=== PATIENT | male | born 1950 | race African-American/Black ===

== ENCOUNTER 2019-04-22 07:30 | Day surgery (SDC) | payer MEDICARE, OTHER ==
[~2019-04-22 07:30] MED LIST: Acetaminophen TAB* 325 MG PO PRN; Buffered Lidocaine 1% SYRIN* 1 ML/SYRINGE INTRADERM ONE
[2019-04-22] MEDS ORDERED: fentaNYL* 50 MCG/ML 2 ML VIAL (100 MCG VIAL) ONE (08:34)
[2019-04-22] MEDS ORDERED: Midazolam* 1 MG/ML 5 ML VIAL (5 MG) ONE (08:34)
[2019-04-22 09:38] VITALS: BP 124/95
[2019-04-22] MEDS ORDERED: Neomycin/Polymy/Dex OPHTH.OIN* 3.5 GM ONE (09:42)
[2019-04-22] MEDS ORDERED: Lidocaine 1% MPF ** 5 ML VIAL ONE (09:42)
[2019-04-22] MEDS ORDERED: Tropicamide 1% OPTH.SOL* BTL ONE (09:42)
[2019-04-22] MEDS ORDERED: Tetracaine 0.5% OPTH.SOL 4 ML* 1 DROP BTL ONE (09:42)
[2019-04-22] MEDS ORDERED: Phenylephrine OPHTH SOL 2.5%* 2 ML ONE (09:42)
[2019-04-22] MEDS ORDERED: Ketorolac 0.5% OPHTH (NF) 0.5 % 5 ML BTL ONE (09:42)
[2019-04-22] MEDS ORDERED: Cyclopentolate 1% OPTH.SOL* 2 ML BTL ONE (09:42)
[2019-04-22] MEDS ORDERED: Phenylephr/Ketorolac 1%/0.3% OPH DROP BTL ONE ×2 (11:05→13:38)
--- NOTE | 2019-04-22 14:41 | OP ---
DATE OF OPERATION: 04/22/19 [facility] DATE OF : 50 SURGEON: Elvin Bautista MD [employer] COUNSELOR: None. ANESTHESIA: Topical with intravenous sedation. PRE-OP DIAGNOSIS: Cataract with astigmatism, left eye. POST-OP DIAGNOSIS: Cataract with astigmatism, left eye. OPERATIVE PROCEDURE: Phacoemulsification and cataract extraction with posterior chamber intraocular toric lens implant, left eye. COMPLICATIONS: None. BLOOD LOSS: None. DESCRIPTION OF PROCEDURE: The patient was brought to the operating room and was given intravenous sedation. A drop of tetracaine was placed in his left eye. The patient was prepped and draped in the usual sterile fashion for ophthalmic surgery and attention was directed to the left eye where a speculum was placed. A paracentesis was created at the 5 o'clock position and 0.1 cc of 1% preservative- free lidocaine was injected into the anterior chamber followed by DisCoVisc. The eye was digitally stabilized while a 2.75 mm keratome was used to create a triplanar clear corneal incision at the 3 o'clock position. It was noted that the pupil did not dilate well and the viscoelastic only helped to open it a bit further, so Omidria was added to the irrigating solution. A continuous curvilinear capsulorrhexis was created with a cystotome and Utrata forceps measuring approximately 5 mm in diameter. BSS on a cannula was used to hydrodissect the lens from the capsule. Phacoemulsification was performed in a fysque-khw-suvteah technique to create 4 fragments which were removed. Residual cortical material was removed with irrigation and aspiration. The capsular bag was polished. Provisc was used to inflate the capsular bag. The surface of the eye was lubricated after the intraocular pressure was checked. The ORA device was employed. An SN6AT4 17.5 diopter lens was chosen. A reticle on the ORA helped guide lens access placement. The lens was folded and inserted into the capsular bag. It was dialed to the appropriate axis of approximately 86 degrees. The lens was stabilized in this position using a Sinskey hook while irrigation and aspiration were performed to remove viscoelastic from the eye. BSS on a cannula was used to hydrate the cornea and seal the wound. At the end of the case, the pupil was round. The lens was centered, stable and axially aligned. The eye pressure appeared normal and the wound was watertight. The speculum was removed. Topical Maxitrol ointment was placed on the surface of the eye. The eye was closed, patched, and shielded and the patient was sent to the recovery room in stable condition with postoperative instructions and followup appointment given. [id number]/CPS #: [id number] MTDD
== END 2019-04-22 09:33 | disposition home or self-care (01) ==
LOC: OREAST 07:30
PROVIDERS: ATTEND Ophthalmology
DX: H25.042 Posterior subcapsular polar age-related cataract, left eye (principal); H52.202 Unspecified astigmatism, left eye
CPT/HCPCS: A9270-GY; J1097; J2250; J3010; V2787

== ENCOUNTER 2019-04-29 07:23 | Day surgery (SDC) | payer MEDICARE, OTHER ==
[2019-04-29] MEDS ORDERED: Lidocaine 1% MPF ** 5 ML VIAL ONE (07:30)
[2019-04-29] MEDS ORDERED: Tetracaine 0.5% OPTH.SOL 4 ML* 1 DROP BTL ONE (07:30)
[2019-04-29] MEDS ORDERED: Ketorolac 0.5% OPHTH (NF) 0.5 % 5 ML BTL ONE (07:30)
[2019-04-29] MEDS ORDERED: Tropicamide 1% OPTH.SOL* BTL ONE (07:30)
[2019-04-29] MEDS ORDERED: Neomycin/Polymy/Dex OPHTH.OIN* 3.5 GM ONE (07:30)
[2019-04-29] MEDS ORDERED: Phenylephrine OPHTH SOL 2.5%* 2 ML ONE (07:30)
[2019-04-29] MEDS ORDERED: Cyclopentolate 1% OPTH.SOL* 2 ML BTL ONE (07:30)
[2019-04-29] MEDS ORDERED: fentaNYL* 50 MCG/ML 2 ML VIAL (100 MCG VIAL) ONE (08:16)
[2019-04-29] MEDS ORDERED: Midazolam* 1 MG/ML 2 ML VIAL (2 MG) ONE ×2 (08:16→11:37)
[2019-04-29 09:35] VITALS: BP 116/84
--- NOTE | 2019-04-29 22:20 | OP ---
DATE OF OPERATION: 04/29/19 - [facility] DATE OF : 50 SURGEON: Elvin Bautista MD [employer]ER[employer] ATTORNEY: None. ANESTHESIA: Topical with intravenous sedation. PRE-OP DIAGNOSIS: Cataract with astigmatism, right eye. POST-OP DIAGNOSIS: Cataract with astigmatism, right eye OPERATIVE PROCEDURE: Phacoemulsification cataract extraction with posterior chamber toric intraocular lens implant, right eye. COMPLICATIONS: None. ESTIMATED BLOOD LOSS: None. DESCRIPTION OF PROCEDURE: The patient was brought to the operating room and received intravenous sedation. A drop of Tetracaine was placed in his right eye. The patient was prepped and draped in the usual sterile fashion for ophthalmic surgery and attention was directed to the right eye where a speculum was placed. A paracentesis was created at the 11 o'clock position and 0.1 cc of 1% preservative free lidocaine was injected into the anterior chamber followed by DisCoVisc. The eye was digitally stabilized while a 2.75 mm keratome was used to create a triplanar clear corneal incision at the 9 o'clock position. A continuous curvilinear capsulorrhexis was created with a cystotome and Utrata forceps. BSS on a cannula was used to hydrodissect the lens from the capsule. Phacoemulsification was performed in a pwnccs-ghu-tvruice technique to create 4 fragments which were removed. Residual cortical material was removed with irrigation and aspiration. The capsular bag was polished. ProGrip was used to inflate the capsular bag. Intraocular pressure was confirmed. The surface of the eye was lubricated. The ORA device was then employed. An SN6AT3 20.5 diopter lens was chosen. The lens was folded and inserted into the capsular bag. The reticule on the ORA help guide the lens access placement. Once the lens was secured at approximately 118 degrees, irrigation and aspiration were performed to remove viscoelastic from the eye. BSS in a cannula was used to hydrate the corneal stroma and seal the wound. At the end of the case, the pupil was round. The lens was centered, stable, and axially aligned. The eye pressure appeared normal and the wound was water tight. The speculum was removed. Topical Maxitrol ointment was placed on the surface of the eye. The eye was closed, patched, and shielded, and the patient was sent to recovery room in stable condition with postop instructions and followup appointment given. [id number]/CPS #: [id number] LOCO
== END 2019-04-29 09:44 | disposition home or self-care (01) ==
LOC: OREAST 07:23
PROVIDERS: ATTEND Ophthalmology
DX: H25.041 Posterior subcapsular polar age-related cataract, right eye (principal)
CPT/HCPCS: A9270-GY; J2250; J3010; V2787

== ENCOUNTER 2022-09-16 06:56 | Inpatient (IN) ==
[2022-09-16] MEDS ORDERED: Iodixanol (CONTRAST) 320 MG/ML 100 ML SDV IV ONE (07:16)
[2022-09-16 07:33] LABS: Hematocrit 28.3 % (38-53); Hemoglobin 9.7 g/dL (13.2-16.3); Mean Corpuscular Hemoglobin 28.9 pg (27-33); Mean Corpuscular Hgb Conc 34.4 g/dL (31-36); Mean Platelet Volume 8.2 fL (7.5-11.2); Platelet Count 126 10^3/uL (150-450); Red Blood Count 3.37 10^6/uL (4.06-5.63); Red Cell Distribution Width 15.8 % (12-17); White Blood Count 3.9 10^3/uL (3.6-10.2)
[2022-09-16 07:53] LABS: Albumin/Globulin Ratio 0.9 (1-3); Calcium 8.6 mg/dL (8.6-10.3); Creatinine, Serum 1.13 mg/dL (0.67-1.17); Globulin 3.4 g/dL (2-4); HDL Cholesterol 5.1 mg/dL; Potassium 3.8 mmol/L (3.5-5.0); Total Bilirubin 1.4 mg/dL (0.2-1.0); Total Protein 6.4 g/dL (6.4-8.9); eGFR CKD-EPI 69.1 (>60)
[2022-09-16 08:00] LABS: Activated Partial Thrombo Time 32.6 seconds (26.0-38.0); INR 1.6 (0.88-1.18)
[2022-09-16 08:26] LABS: ABS Basophils 0.1 10^3/uL (0.0-0.1); ABS Lymphocytes 0.8 10^3/uL (1.0-4.8); ABS Monocytes 0.8 10^3/uL (0.0-1.1); ABS Neutrophils 2.1 10^3/uL (1.5-7.6); Eosinophil % 0.1 %; Lymphocyte % 20.7 %; Nucleated Red Blood Cells % 0.1 /100 WBC (0.0-0.4)
[2022-09-16] MEDS ORDERED: DOXYcycline 100 MG in NS 0.9% 250 ml 250 ML IVPB ONE (08:37)
[2022-09-16] MEDS ORDERED: NS 0.9% 1000 ml BAG 1,000 ML IV ONE (08:38)
[2022-09-16] MEDS ORDERED: Gadoteridol (CONTRAST) 279.3 MG/ML 10 ML IV ONE (09:28)
[2022-09-16 10:19] LABS: Urine Appearance Clear; Urine Bilirubin Negative (Negative); Urine Blood 1+ (Negative); Urine Color Yellow; Urine Glucose Negative (Negative); Urine Ketones Trace (Negative); Urine Nitrite Negative (Negative); Urine Protein Negative (Negative); Urine Specific Gravity 1.048 (1.002-1.030); Urine Urobilinogen Positive (Negative)
[2022-09-16 10:25] LABS: Urine Bacteria Absent (Absent); Urine Red Blood Cell Trace(0-2/hpf) (Absent); Urine White Blood Cell Trace(0-5/hpf) (Absent)
[2022-09-16 12:17] LABS: TSH Ultra Thyroid Stim Horm 2.56 mcIU/mL (0.34-5.60)
[2022-09-16] MEDS ORDERED: Iohexol 350 (CONTRAST) 500 ML MDV IV ONE (12:24)
[2022-09-16 12:28] LABS: Vitamin B12 540 pg/mL (180-914)
[2022-09-16 13:57] LABS: C Reactive Protein 181.81 mg/L (<8.01)
[2022-09-16 13:58] LABS: % Iron Saturation 16 % (15-55); .Transferrin 117 mg/dL (203-362); Iron 27 ug/dL (50-212); Total Iron Binding Capacity 164 mcg/dL (250-450); Unsaturated Iron Binding 137 ug/dL
[2022-09-16 14:24] LABS: Folate > 20.00 ng/mL (5.90-24.80)
[2022-09-16 14:54] LABS: Erythrocyte Sed Rate 88 mm/Hr (0-19)
[2022-09-16] MEDS ORDERED: Senna TAB 8.6 mg TAB PO ONE (15:08)
[2022-09-16] MEDS ORDERED: Senna TAB 8.6 mg TAB PO PRN (15:08)
[2022-09-16] MEDS: Enoxaparin 40 MG/0.4 ML SYR SUBCUT SCH (16:11)
[2022-09-17 05:56] LABS: ABS Lymphocytes 0.8 10^3/uL (1.0-4.8); ABS Monocytes 0.6 10^3/uL (0.0-1.1); ABS Neutrophils 1.9 10^3/uL (1.5-7.6); ABS Nucleated RBC 0.01 10^3/ul; Eosinophil % 0.2 %; Hematocrit 28.5 % (38-53); Lymphocyte % 24.1 %; Mean Corpuscular Hemoglobin 28.7 pg (27-33); Nucleated Red Blood Cells % 0.2 /100 WBC (0.0-0.4); Platelet Count 153 10^3/uL (150-450); Red Blood Count 3.47 10^6/uL (4.06-5.63); Red Cell Distribution Width 15.8 % (12-17); White Blood Count 3.3 10^3/uL (3.6-10.2)
[2022-09-17 06:09] LABS: Calcium 8.7 mg/dL (8.6-10.3); Creatinine, Serum 0.9 mg/dL (0.67-1.17); Magnesium 1.9 mg/dL (1.9-2.7); Potassium 3.9 mmol/L (3.5-5.0); eGFR CKD-EPI 90.7 (>60)
[2022-09-17] MEDS: Enoxaparin 40 MG/0.4 ML SYR SUBCUT SCH (14:18)
[2022-09-17] MEDS: Azithromycin 500 mg/250 ml NS 500 MG/250 ML BAG IVPB SCH (14:18)
[2022-09-18 06:20] LABS: ABS Monocytes 0.5 10^3/uL (0.0-1.1); ABS Neutrophils 1.4 10^3/uL (1.5-7.6); ABS Nucleated RBC 0.01 10^3/ul; Eosinophil % 0.6 %; Hemoglobin 10.2 g/dL (13.2-16.3); Lymphocyte % 32.6 %; Mean Corpuscular Hemoglobin 28.5 pg (27-33); Mean Corpuscular Volume 81.3 fL (80-97); Mean Platelet Volume 7.9 fL (7.5-11.2); Nucleated Red Blood Cells % 0.2 /100 WBC (0.0-0.4); Platelet Count 172 10^3/uL (150-450); Red Blood Count 3.57 10^6/uL (4.06-5.63); Red Cell Distribution Width 16.2 % (12-17)
[2022-09-18 06:36] LABS: Albumin 3.3 g/dL (3.2-5.2); Albumin/Globulin Ratio 0.9 (1-3); Calcium 9.5 mg/dL (8.6-10.3); Creatinine, Serum 0.84 mg/dL (0.67-1.17); Direct Bilirubin 0.3 mg/dL (0.03-0.18); Globulin 3.7 g/dL (2-4); Indirect Bilirubin 1.1 mg/dL (0.3-1.0); Potassium 3.7 mmol/L (3.5-5.0); Total Bilirubin 1.4 mg/dL (0.2-1.0); eGFR CKD-EPI 92.7 (>60)
[2022-09-18] MEDS: Magnesium Hydroxide LIQ 30 ML UDC PO PRN (08:26)
[2022-09-18] MEDS: Azithromycin 500 mg/250 ml NS 500 MG/250 ML BAG IVPB SCH (14:32)
[2022-09-18] MEDS: Enoxaparin 40 MG/0.4 ML SYR SUBCUT SCH (14:35)
[2022-09-19 06:23] LABS: ABS Lymphocytes 0.9 10^3/uL (1.0-4.8); ABS Monocytes 0.5 10^3/uL (0.0-1.1); ABS Neutrophils 1.3 10^3/uL (1.5-7.6); ABS Nucleated RBC 0.01 10^3/ul; Eosinophil % 0.5 %; Hematocrit 27.3 % (38-53); Hemoglobin 9.6 g/dL (13.2-16.3); Lymphocyte % 32.7 %; Mean Corpuscular Hemoglobin 28.3 pg (27-33); Mean Corpuscular Hgb Conc 34.9 g/dL (31-36); Mean Platelet Volume 7.5 fL (7.5-11.2); Nucleated Red Blood Cells % 0.4 /100 WBC (0.0-0.4); Platelet Count 203 10^3/uL (150-450); Red Blood Count 3.37 10^6/uL (4.06-5.63); Red Cell Distribution Width 15.9 % (12-17); White Blood Count 2.7 10^3/uL (3.6-10.2)
[2022-09-19 06:34] LABS: Calcium 8.9 mg/dL (8.6-10.3); Creatinine, Serum 0.99 mg/dL (0.67-1.17); Potassium 3.9 mmol/L (3.5-5.0); eGFR CKD-EPI 80.9 (>60)
[2022-09-19] MEDS ORDERED: DOXYcycline 100 MG in NS 0.9% 250 ml 250 ML IVPB ONE (10:36)
[2022-09-19] MEDS: Azithromycin 500 mg/250 ml NS 500 MG/250 ML BAG IVPB SCH (13:53)
[2022-09-19] MEDS: Enoxaparin 40 MG/0.4 ML SYR SUBCUT SCH (13:53)
[2022-09-19] MEDS: Magnesium Hydroxide LIQ 30 ML UDC PO PRN (14:02)
[2022-09-20 06:27] LABS: ABS Lymphocytes 1.2 10^3/uL (1.0-4.8); ABS Monocytes 0.4 10^3/uL (0.0-1.1); ABS Neutrophils 1.4 10^3/uL (1.5-7.6); Eosinophil % 0.7 %; Hematocrit 29.7 % (38-53); Hemoglobin 10.1 g/dL (13.2-16.3); Lymphocyte % 39.9 %; Mean Corpuscular Hemoglobin 28.2 pg (27-33); Mean Corpuscular Hgb Conc 34.1 g/dL (31-36); Mean Corpuscular Volume 82.9 fL (80-97); Mean Platelet Volume 7.6 fL (7.5-11.2); Nucleated Red Blood Cells % 0.1 /100 WBC (0.0-0.4); Platelet Count 260 10^3/uL (150-450); Red Blood Count 3.59 10^6/uL (4.06-5.63); Red Cell Distribution Width 16.8 % (12-17); White Blood Count 3.1 10^3/uL (3.6-10.2)
[2022-09-20 06:42] LABS: Creatinine, Serum 0.91 mg/dL (0.67-1.17); Magnesium 2.2 mg/dL (1.9-2.7); Potassium 3.7 mmol/L (3.5-5.0); eGFR CKD-EPI 89.5 (>60)
[2022-09-20] MEDS ORDERED: Lactated Ringers 1000 ml BAG 1,000 ML IV SCH (08:00)
[2022-09-20] MEDS: Enoxaparin 40 MG/0.4 ML SYR SUBCUT SCH (13:04)
[2022-09-20] MEDS: Azithromycin 500 mg/250 ml NS 500 MG/250 ML BAG IVPB SCH (13:04)
[2022-09-20] MEDS: Magnesium Hydroxide LIQ 30 ML UDC PO PRN (13:04)
[2022-09-20 13:59] LABS: C Reactive Protein 90.09 mg/L (<8.01); Direct Bilirubin 0.3 mg/dL (0.03-0.18); Indirect Bilirubin 0.5 mg/dL (0.3-1.0); Total Bilirubin 0.8 mg/dL (0.2-1.0)
[2022-09-21 07:07] LABS: ABS Lymphocytes 1.1 10^3/uL (1.0-4.8); ABS Monocytes 0.3 10^3/uL (0.0-1.1); ABS Neutrophils 1.8 10^3/uL (1.5-7.6); ABS Nucleated RBC 0.01 10^3/ul; Eosinophil % 0.5 %; Hematocrit 29.3 % (38-53); Lymphocyte % 33.9 %; Mean Corpuscular Hemoglobin 28.1 pg (27-33); Mean Corpuscular Volume 82.7 fL (80-97); Mean Platelet Volume 6.9 fL (7.5-11.2); Nucleated Red Blood Cells % 0.3 /100 WBC (0.0-0.4); Platelet Count 303 10^3/uL (150-450); Red Blood Count 3.55 10^6/uL (4.06-5.63); Red Cell Distribution Width 16.8 % (12-17); White Blood Count 3.2 10^3/uL (3.6-10.2)
[2022-09-21 07:15] LABS: Activated Partial Thrombo Time 31.9 seconds (26.0-38.0); INR 1.32 (0.88-1.18)
[2022-09-21 07:23] LABS: Calcium 9.1 mg/dL (8.6-10.3); Creatinine, Serum 0.88 mg/dL (0.67-1.17); Magnesium 2.1 mg/dL (1.9-2.7); Potassium 3.9 mmol/L (3.5-5.0); eGFR CKD-EPI 91.4 (>60)
[2022-09-21] MEDS: Azithromycin 500 mg/250 ml NS 500 MG/250 ML BAG IVPB SCH (13:57)
[2022-09-21] MEDS ORDERED: Enoxaparin 40 MG/0.4 ML SYR SUBCUT ONE (20:00)
[2022-09-22 06:20] LABS: ABS Lymphocytes 1.1 10^3/uL (1.0-4.8); ABS Monocytes 0.3 10^3/uL (0.0-1.1); ABS Neutrophils 1.5 10^3/uL (1.5-7.6); ABS Nucleated RBC 0.01 10^3/ul; Hemoglobin 9.7 g/dL (13.2-16.3); Lymphocyte % 36.5 %; Mean Corpuscular Hemoglobin 28.4 pg (27-33); Mean Corpuscular Hgb Conc 34.5 g/dL (31-36); Mean Corpuscular Volume 82.3 fL (80-97); Mean Platelet Volume 6.9 fL (7.5-11.2); Nucleated Red Blood Cells % 0.3 /100 WBC (0.0-0.4); Platelet Count 296 10^3/uL (150-450); Red Blood Count 3.41 10^6/uL (4.06-5.63); Red Cell Distribution Width 16.6 % (12-17); White Blood Count 2.9 10^3/uL (3.6-10.2)
[2022-09-22 06:23] LABS: INR 1.34 (0.88-1.18)
[2022-09-22 06:46] LABS: Calcium 8.8 mg/dL (8.6-10.3); Creatinine, Serum 0.95 mg/dL (0.67-1.17); Potassium 3.9 mmol/L (3.5-5.0)
[2022-09-22 12:23] LABS: PT/After 1 Hour Incubation 12.8 seconds (9.5-12.8); PT/Normal Control 12.5 seconds (9.5-12.8)
[2022-09-22 12:27] LABS: Mixing Study Protime 14.6 seconds (9.5-12.8)
[2022-09-22] MEDS: Azithromycin 500 mg/250 ml NS 500 MG/250 ML BAG IVPB SCH (12:50)
[2022-09-22] MEDS ORDERED: Phytonadione Oral Solution 5 MG/25 ML UDC PO ONE ×2 (18:47→20:00)
[2022-09-22] MEDS: Oxymetazoline 0.05% NASAL SPR 15 ML BTL BOTH NARES SCH (20:25)
[2022-09-23 06:07] LABS: Hematocrit 27.4 % (38-53); Hemoglobin 9.5 g/dL (13.2-16.3); Mean Corpuscular Hemoglobin 28.6 pg (27-33); Mean Corpuscular Hgb Conc 34.8 g/dL (31-36); Mean Corpuscular Volume 82.2 fL (80-97); Mean Platelet Volume 6.8 fL (7.5-11.2); Platelet Count 307 10^3/uL (150-450); Red Blood Count 3.33 10^6/uL (4.06-5.63); Red Cell Distribution Width 16.4 % (12-17); White Blood Count 2.8 10^3/uL (3.6-10.2)
[2022-09-23 06:11] LABS: INR 1.31 (0.88-1.18)
[2022-09-23] MEDS: Oxymetazoline 0.05% NASAL SPR 15 ML BTL BOTH NARES SCH ×2 (07:48→21:31)
[2022-09-23 08:01] LABS: Polychromasia 1+; RBC Morphology Normal (Normal)
[2022-09-23 08:02] LABS: ABS Lymphocytes 1.2 10^3/uL (1.0-4.8); ABS Monocytes 0.4 10^3/uL (0.0-1.1); ABS Neutrophils 1.2 10^3/uL (1.5-7.6); Eosinophil % 1.4 %; Lymphocyte % 41.2 %; Nucleated Red Blood Cells % 0.1 /100 WBC (0.0-0.4)
[2022-09-23] MEDS: Azithromycin 500 mg/250 ml NS 500 MG/250 ML BAG IVPB SCH (13:13)
[2022-09-24 06:14] LABS: ABS Lymphocytes 1.1 10^3/uL (1.0-4.8); ABS Monocytes 0.4 10^3/uL (0.0-1.1); ABS Neutrophils 1.6 10^3/uL (1.5-7.6); ABS Nucleated RBC 0.01 10^3/ul; Eosinophil % 0.6 %; Hematocrit 29.4 % (38-53); Hemoglobin 10.4 g/dL (13.2-16.3); Mean Corpuscular Hemoglobin 28.8 pg (27-33); Mean Corpuscular Hgb Conc 35.3 g/dL (31-36); Mean Corpuscular Volume 81.5 fL (80-97); Mean Platelet Volume 7.3 fL (7.5-11.2); Nucleated Red Blood Cells % 0.3 /100 WBC (0.0-0.4); Platelet Count 324 10^3/uL (150-450); Red Blood Count 3.61 10^6/uL (4.06-5.63); Red Cell Distribution Width 16.4 % (12-17); White Blood Count 3.2 10^3/uL (3.6-10.2)
[2022-09-24 06:32] LABS: Albumin 3.6 g/dL (3.2-5.2); Calcium 9.2 mg/dL (8.6-10.3); Creatinine, Serum 0.89 mg/dL (0.67-1.17); Globulin 3.6 g/dL (2-4); Potassium 3.7 mmol/L (3.5-5.0); Total Protein 7.2 g/dL (6.4-8.9); eGFR CKD-EPI 91.1 (>60)
[2022-09-24] MEDS: Oxymetazoline 0.05% NASAL SPR 15 ML BTL BOTH NARES SCH ×2 (08:15→20:58)
[2022-09-24] MEDS: cefTRIAXone 1 gm/50 mL D5W 1 GM/50 ML BAG IV SCH (10:15)
[2022-09-24 10:43] LABS: C Reactive Protein 14.24 mg/L (<8.01)
[2022-09-24] MEDS: Azithromycin 500 mg/250 ml NS 500 MG/250 ML BAG IVPB SCH (12:58)
[2022-09-25 06:00] LABS: INR 1.34 (0.88-1.18)
[2022-09-25 06:56] LABS: Hematocrit 28.5 % (38-53); Hemoglobin 9.9 g/dL (13.2-16.3); Mean Corpuscular Hemoglobin 28.7 pg (27-33); Mean Corpuscular Hgb Conc 34.6 g/dL (31-36); Mean Platelet Volume 6.7 fL (7.5-11.2); Platelet Count 278 10^3/uL (150-450); Red Blood Count 3.44 10^6/uL (4.06-5.63); Red Cell Distribution Width 16.6 % (12-17); White Blood Count 3.1 10^3/uL (3.6-10.2)
[2022-09-25 07:13] LABS: Albumin 3.4 g/dL (3.2-5.2); Albumin/Globulin Ratio 1.1 (1-3); Calcium 9.1 mg/dL (8.6-10.3); Creatinine, Serum 0.82 mg/dL (0.67-1.17); Globulin 3.2 g/dL (2-4); Magnesium 2.1 mg/dL (1.9-2.7); Potassium 4.3 mmol/L (3.5-5.0); Total Bilirubin 0.9 mg/dL (0.2-1.0); Total Protein 6.6 g/dL (6.4-8.9); eGFR CKD-EPI 93.3 (>60)
[2022-09-25 08:04] LABS: ABS Lymphocytes 1.1 10^3/uL (1.0-4.8); ABS Monocytes 0.3 10^3/uL (0.0-1.1); ABS Neutrophils 1.7 10^3/uL (1.5-7.6); ABS Nucleated RBC 0.02 10^3/ul; Eosinophil % 0.7 %; Lymphocyte % 34.2 %; Nucleated Red Blood Cells % 0.6 /100 WBC (0.0-0.4)
[2022-09-25] MEDS: cefTRIAXone 1 gm/50 mL D5W 1 GM/50 ML BAG IV SCH (09:46)
[2022-09-25] MEDS: Oxymetazoline 0.05% NASAL SPR 15 ML BTL BOTH NARES SCH (09:46)
[2022-09-25] MEDS ORDERED: fentaNYL 100 mcg/2 ml 50 MCG/ML VIAL ONE (11:42)
[2022-09-25 12:36] LABS: Body Fluid Source Cerebral Spinal
[2022-09-25 12:56] LABS: CSF Glucose 63 mg/dL (40-70)
[2022-09-25] MEDS: Azithromycin 500 mg/250 ml NS 500 MG/250 ML BAG IVPB SCH (13:06)
[2022-09-25 13:55] LABS: Body Fluid Appearance Clear; Body Fluid Color Colorless; CSF Tube # 4
[2022-09-25 13:58] LABS: Body Fluid WBC 16 /mcL
[2022-09-25 15:51] LABS: Body Fluid Mono 3 %; Body Fluid Total Cells Counted 200
[2022-09-25 16:19] VITALS: BP 115/66
[2022-09-26] MEDS ORDERED: cefTRIAXone 1 GM Q24H (ADVAN) IVPB SCH (09:00)
[2022-09-28 16:47] LABS: Varicella Zoster Source CSF; Varicella Zoster Virus PCR Negative (Negative)
[2022-09-29 15:30] LABS: CSF West Nile Virus IgG Ab Negative (Negative); CSF West Nile Virus IgM Ab Negative (Negative)
[2022-10-02 14:37] LABS: Lyme CNS IgG Ab Index Interp Positive; Lyme CNS IgG Ab Index Value 1.8 (0.6 - 1.2)
== END 2022-09-25 17:30 | disposition home or self-care (01) | DRG 71 ==
LOC: ED 06:56 → EDHOLD 06:56 → MED 11:43 → SUATTDRO 09-17 13:30
PROVIDERS: ADMIT Student in an Organized Health Care Education/Training Program; ATTEND Hospitalist